=== PATIENT | male | born 1995 | race Caucasian/White ===

== ENCOUNTER 2020-09-17 15:16 | Observation (INO) | payer OTHER, SELFPAY ==
--- NOTE | ~2020-09-17 | CT_ITS ---
EXAMINATION: CT abdomen pelvis w con EXAM DATE: 09/17/2020 16:38 INDICATION: Right-sided abdominal pain. TECHNIQUE: Spiral CT of the abdomen and pelvis was performed following intravenous injection of 100 m L Omnipaque 350. Axial, coronal and sagittal images were reviewed. The dose-length product (DLP) fo r this examination was 1832.96 mGy-cm. The exposure was tailored according to patient size (auto mA exposure control), and iterative reconstruction (ASIR) was used as additional dose reduction techniqu e. There is no prior study for comparison. FINDINGS: There is hepatic steatosis without suspicious focal lesion identified. Spleen, adrenal gl ands, pancreas are unremarkable. Gallbladder is unremarkable. No biliary obstruction. Portal and s plenic veins are patent. Kidneys enhance symmetrically. There is no hydronephrosis. The prostate is unremarkable. The bladder is unremarkable. There is no retroperitoneal or pelvic lymphadenopathy . There is mild fat stranding along the body of the appendix. There is no appendicolith, and appendix d oes not appear obstructed. Diameter of up to 8 mm which is mildly dilated. The stomach and small bow el are unremarkable. There is expected amount of colonic stool. No free intraperitoneal gas. The heart is normal in size. There are no pericardial or pleural effusions. The lung bases are unremar kable. There are no osteoblastic or osteolytic lesions identified. IMPRESSION: Mild fat stranding surrounding the appendix body, probably early acute appendicitis. Reviewed, dictated and finalized at location A. IMPRESSION: Mild fat stranding surrounding the appendix body, probably early ac chilkat appendicitis.
[2020-09-17 15:18] VITALS: BP 145/76; PULSE 105; RESP 15; TEMP 36.9; O2SAT 98
[2020-09-17 15:55] LABS: Basophils Percent Auto 0.2 % (0.2-1.2); Eosinophils Absolute Auto 0.2 K/mm3 (0-0.3); Hemoglobin 15.1 g/dL (14.0-18.0); Immature Granulocyte Absolute 0.07 K/mm3 (0.00-0.031); Immature Granulocyte Percent A 0.4 % (0-0.5); Lymphocytes Absolute Auto 1.87 K/mm3 (0.9-3.2); Lymphocytes Percent Auto 11.4 % (18.3-44.2); Mean Corpuscular HGB Conc 32.8 g/dl (32-36); Mean Corpuscular Volume 82.3 fl (80-100); Mean Platelet Volume 9.5 fl (7.4-10.4); Monocytes Absolute Auto 0.9 K/mm3 (0.1-0.6); Monocytes Percent Auto 5.6 % (2.6-8.5); Neutrophils Absolute Auto 13.4 K/mm3 (1.3-6.7); Neutrophils Percent Auto 81.4 % (45.5-73.1); Platelet Count Result 292 k/mm3 (150-375); Red Blood Count 5.59 M/mm3 (4.6-6.20); White Blood Count 16.5 K/mm3 (4.5-10.0)
[2020-09-17 16:07] LABS: Alanine Aminotransferase 60 U/L (4-50); Albumin Level 4.5 g/dL (3.5-5.1); Alkaline Phosphatase 84 U/L (38-126); Anion Gap 9 mmol/L (8-16); Aspartate Amino Transferase 32 U/L (17-59); Bilirubin,Total 0.6 mg/dL (0.2-1.3); Blood Urea Nitrogen 11 mg/dL (9-20); Calcium 9.3 mg/dL (8.4-10.2); Carbon Dioxide 28 mmol/L (22-30); Chloride 101 mmol/L (98-107); Estimated CRCL calculation 193 ml/min; Estimated Glomerular Filt Rate > 60; Glucose 107 mg/dL (75-110); Lipase 22 U/L (23-300); Potassium 4.3 mmol/L (3.4-5.0); Sodium 138 mmol/L (137-145)
[2020-09-17] MEDS: SODIUM CHLORIDE 0.9% IV 1,000 ML 999 ML IV CONT (16:25)
[2020-09-17 16:29] VITALS: BP 120/71; PULSE 91; RESP 20; TEMP 36.8; O2SAT 99
--- NOTE | 2020-09-17 16:32 | ED.ABDPAIN ---
HPI - Abdominal Pain General Chief Complaint: Abdominal Pain Stated Complaint: R flank pain Time Seen by Provider: 09/17/20 15:30 Source: patient Mode of arrival: ambulatory Limitations: no limitations History of Present Illness HPI narrative: 25 years old white man morbidly obese, presents with right abdominal sharp pain started 2-hour prior to arrival associated with nausea and vomiting once. Pain worse with movement, better laying down. 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 Patient is a smoker, does not drink or uses drugs Related Data Home Medications Medication Instructions Recorded Confirmed No Home Medications 09/17/20 09/17/20 Allergies Allergy/AdvReac Type Severity Reaction Status Date / Time No Known Allergies Allergy Verified 09/17/20 15:54 Review of Systems Review of Systems: Narrative: CONSTITUTIONAL: Denies fever, chills, or sweats. EYES: Denies visual changes, redness, or discharge. ENT: Denies rhinorrhea, congestion, sore throat, or otalgia. CARDIOVASCULAR: Denies chest pain, palpitations, or edema. RESPIRATORY: Denies cough or dyspnea. GASTROINTESTINAL: Complaining of right abdominal pain GENITOURINARY: Denies dysuria or hematuria. SKIN: Denies rash or itching. MUSCULOSKELETAL: Denies back pain, joint pain, or myalgia. NEUROLOGIC: Denies headache, numbness, or weakness. PSYCHIATRIC: Denies anxiety or depression. [facility] Social History Social History Gender identity (if verbalized by the patient): Male Exam Narrative: Exam Narrative: General appearance: Well-developed, well-nourished Skin: Normal color Head: Normocephalic, nontraumatic Eyes: Clear conjunctiva ENT: Oropharynx normal, ears normal, nose normal Neck: Supple, nontender Chest and respiratory: Airway patent, no respiratory distress, no accessory muscle use Heart: Regular rate/rhythm Abdomen: Soft, moderate tenderness right abdomen, no guarding or rebound, no organomegaly, quiet bowel sounds Vascular: Normal peripheral pulses, normal capillary refill. Musculoskeletal: Normal range of motion, nontender back Neurologic: Alert and oriented ?3, FINANCE VICE PRESIDENT is normal as tested, no gross motor deficit Course Course Emergency Course: Improving Consultations Consultation #1: Dr. Thomas, surgical consult Date: 09/17/20 Time: 17:13 Vital Signs Vital signs: Vital Signs Temperature 36.9 C 09/17/20 15:18 Pulse Rate 105 H 09/17/20 15:18 Respiratory Rate 15 09/17/20 15:18 Blood Pressure 145/76 H 09/17/20 15:18 Pulse Oximetry 98 09/17/20 15:18 Temperature 36.8 C 09/17/20 16:29 Pulse Rate 91 09/17/20 16:29 Respiratory Rate 20 09/17/20 16:29 Blood Pressure 120/71 09/17/20 16:29 Pulse Oximetry 99 09/17/20 16:29 MDM - Abdominal Pain MDM Narrative Medical decision making narrative: Patient presents with right abdominal pain. Kidney stone, pyelonephritis, cholecystitis, gastritis, appendicitis are my concern. Labs, UA, IV fluid, CT abdomen and pelvis with IV contrast ordered. Blood work-up showed leukocytosis, CT abdomen pelvis showed findings consistent with possible early appendicitis. My impression patient has acute appendicitis. Started 2-hour prior to arrival, associated with nausea and vomiting and elevated white count with left shift. IV Zosyn started,, surgical consult ordered Differential Diagnosis Differential diagnosis: Likely abdominal pain, acute appendicitis, calculus of kidney, constipation, diverticul
[2020-09-17 16:45] LABS: Add Urine Microscopic? YES; Appearance Urine Clear (Clear); Bacteria Urine Trace /hpf; Bilirubin Urine Negative (Negative); Blood Urine Negative (Negative); Color Urine Yellow (Yellow); Glucose Urine UA Negative (Negative); Ketones Urine 1+ mg/dL (Negative); Leukocyte Esterase Ur Negative LEU/UL (Negative); Mucus Urine Few /lpf; Nitrate Urine Negative (Negative); Protein Urine Negative (Negative); RBC Urine 0-2 /hpf (0-2); Specific Grav Ur 1.023 (1.001-1.035); Squamous Epithelial Cell Urine Rare /hpf (Few); Urobilinogen Urine Negative mg/dL (<2.0); WBC Urine 0-3 /hpf
[2020-09-17 17:31] VITALS: BP 116/52; PULSE 94; RESP 16; TEMP 36.6; O2SAT 98
[2020-09-17 18:01] VITALS: BP 103/53; PULSE 91; RESP 18; TEMP 37.2; O2SAT 99
--- NOTE | 2020-09-17 18:06 | WPDANESEPP ---
Anes - Eval Pre Procedure Procedure: Laparoscopic appendectomy Date/Time: 09/17/20 18:06 Surgeon: Brian Thomas M.D. Preop Diagnosis: acute appendicitis Pre Op Diagnosis: R flank pain Patient Data Age: 25 Gender: M Height: 1.8 m Weight: 160 kg Last Vital Signs Temp 36.6 C 09/17/20 17:31 Pulse 94 09/17/20 17:31 Resp 16 09/17/20 17:31 BP 116/52 L 09/17/20 17:31 Pulse Ox 98 09/17/20 17:31 Allergies Allergy/AdvReac Type Severity Reaction Status Date / Time No Known Allergies Allergy Verified 09/17/20 15:54 Home Medications Medication Instructions Recorded Confirmed Type No Home Medications 09/17/20 09/17/20 History Laboratory Tests 09/17/20 09/17/20 09/17/20 15:50 15:50 16:28 WBC 16.5 K/mm3 H K/mm3 (4.5-10.0) RBC 5.59 M/mm3 M/mm3 (4.6-6.20) Hgb 15.1 g/dL g/dL (14.0-18.0) Hct 46.0 % % (42.0-52.0) MCV 82.3 fl fl (80-100) MCH 27.0 pg pg (26-34) MCHC 32.8 g/dl g/dl (32-36) RDW 13.0 % % (11.5-14.5) Plt Count 292 k/mm3 k/mm3 (150-375) MPV 9.5 fl fl (7.4-10.4) Immature Gran % (Auto) 0.4 % % (0-0.5) Neut % (Auto) 81.4 % H % (45.5-73.1) Lymph % (Auto) 11.4 % L % (18.3-44.2) Giles % (Auto) 5.6 % % (2.6-8.5) Eos % (Auto) 1.0 % % (0-4.4) Baso % (Auto) 0.2 % % (0.2-1.2) Lymph # (Auto) 1.87 K/mm3 K/mm3 (0.9-3.2) Giles # (Auto) 0.9 K/mm3 H K/mm3 (0.1-0.6) Eos # (Auto) 0.2 K/mm3 K/mm3 (0-0.3) Baso # (Auto) 0.0 K/mm3 K/mm3 (0.0-0.1) Abs Immat Gran (auto) 0.07 K/mm3 H K/mm3 (0.00-0.031) Absolute Neuts (auto) 13.4 K/mm3 H K/mm3 (1.3-6.7) Absolute Nucleated RBC 0.0 K/mm3 K/mm3 (0.0-0.012) Nucleated RBC % 0.0 % % (0.0-0.2) Sodium 138 mmol/L mmol/L (137-145) Potassium 4.3 mmol/L mmol/L (3.4-5.0) Chloride 101 mmol/L mmol/L (98-107) Carbon Dioxide 28 mmol/L mmol/L (22-30) Anion Gap 9 mmol/L mmol/L (8-16) BUN 11 mg/dL mg/dL (9-20) Creatinine 0.80 mg/dL mg/dL (0.7-1.3) Estim Creat Clear Calc 193 ml/min ml/min Estimated GFR > 60 (59 - ) Glucose 107 mg/dL mg/dL (75-110) Calcium 9.3 mg/dL mg/dL (8.4-10.2) Total Bilirubin 0.6 mg/dL mg/dL (0.2-1.3) AST 32 U/L U/L (17-59) ALT 60 U/L H U/L (4-50) Alkaline Phosphatase 84 U/L U/L (38-126) Total Protein 8.0 g/dL g/dL (6.3-8.2) Albumin 4.5 g/dL g/dL (3.5-5.1) Lipase 22 U/L L U/L (23-300) Urine Color Yellow (Yellow) Urine Appearance Clear (Clear) Urine pH 6.0 (5.0-9.0) Ur Specific Center 1.023 (1.001-1.035) Urine Protein Negative mg/dL mg/dL (Negative) Urine Glucose (UA) Negative mg/dL mg/dL (Negative) Urine Ketones 1+ mg/dL H mg/dL (Negative) Ur Blood (Man) Negative (Negative) Urine Nitrate Negative (Negative) Urine Bilirubin Negative (Negative) Urine Urobilinogen Negative mg/dL mg/dL (<2.0) Leukocyte Esterase Rfl Negative BONNIE/UL BONNIE/UL (Negative) Urine RBC 0-2 /hpf /hpf (0-2) Urine WBC 0-3 /hpf /hpf Ur Squamous Epith Cells Rare /hpf /hpf (Few) Urine Bacteria Trace /hpf /hpf Hyaline Casts 1-2 /lpf /lpf (None) Urine Mucus Few /lpf H /lpf : patient denies Patient hx anesthesia problems: none Family hx anesthesia problems: none PMFSH Past Medical History Medical History (Updated 09/17/20 @ 18:07 by Luz Marina Orantes CRNA) Morbid obesity with BMI of 45.0-49.9, adult Social History Social History Gender
[2020-09-17 19:05] VITALS: BP 116/71; PULSE 89; RESP 18; TEMP 36.9; O2SAT 99
--- NOTE | 2020-09-17 19:30 | ADMGEN ---
This patient, Fady Jane, was admitted to Medical Room 348-01. Patient/family oriented to hospital policies and general routines including ID bracelet, bed and alarms, visiting hours, pain management, procedures, bathroom and other care routines, personal items, smoking policy, room service/diet, and visiting hours. Information on how to activate the Rapid Response Team has been discussed. Patient/Family are encouraged to report perceived risks to care and to ask questions if they do not understand what they are told or what they should do.
[2020-09-17 19:48] VITALS: BP 125/66; PULSE 99; RESP 14; TEMP 36.7; O2SAT 97
[2020-09-17] MEDS: LACTATED RINGERS 1,000 ML 125 ML IV CONT (20:21)
[2020-09-18 05:51] VITALS: BP 102/57; PULSE 84; RESP 16; TEMP 36.7; O2SAT 96
[2020-09-18 05:59] LABS: Basophils Percent Auto 0.3 % (0.2-1.2); Eosinophils Absolute Auto 0.2 K/mm3 (0-0.3); Eosinophils Percent Auto 2.1 % (0-4.4); Hematocrit 43.3 % (42.0-52.0); Hemoglobin 14.1 g/dL (14.0-18.0); Immature Granulocyte Absolute 0.05 K/mm3 (0.00-0.031); Immature Granulocyte Percent A 0.5 % (0-0.5); Lymphocytes Absolute Auto 3.55 K/mm3 (0.9-3.2); Lymphocytes Percent Auto 32.2 % (18.3-44.2); Mean Corpuscular HGB Conc 32.6 g/dl (32-36); Mean Corpuscular Volume 82.8 fl (80-100); Mean Platelet Volume 9.6 fl (7.4-10.4); Monocytes Absolute Auto 0.8 K/mm3 (0.1-0.6); Monocytes Percent Auto 7.2 % (2.6-8.5); Neutrophils Absolute Auto 6.4 K/mm3 (1.3-6.7); Neutrophils Percent Auto 57.7 % (45.5-73.1); Platelet Count Result 270 k/mm3 (150-375); Red Blood Count 5.23 M/mm3 (4.6-6.20); Red Cell Distribution Width 13.1 % (11.5-14.5)
[2020-09-18] MEDS: LACTATED RINGERS 1,000 ML 125 ML IV CONT (06:30)
--- NOTE | 2020-09-18 08:53 | PM.IMHP ---
H&P: HPI History of Present Illness Date/Time: 09/18/20 08:53 This is a 25 year old white, morbidly obese male who presents with right-sided abdominal pain that started 2-hour prior to arrival at the ED last night. It was associated with nausea and vomiting once prior to arrival. The pain seems to beworse with movement, better when laying down. Patient states he ate a normal supper with some chicken and rice on Friday night but then only had a small breakfast bar for breakfast yesterday morning. Mid morning he started having the mid and right lower quadrant abdominal pain that gradually increased through the day. His last bowel movement was executive team leader Friday. 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 Patient is a smoker, does not drink or uses drugs Chief complaint: Possible Early Appencicitis Narrative: Fady Jane is a 25 year old male Review of Systems Constitutional: Constitutional: Reports as per HPI and Denies headache(s) Eyes: Eyes: Denies loss of vision and Denies eye pain ENT: Reports Normal hearing present, Denies change in voice, Denies dizziness and Denies headache(s) Cardiovascular: Cardiovascular: Denies chest pain and Denies dyspnea Respiratory: Respiratory: Denies dyspnea and Denies wheezing Comments: History of smoking usually between a half pack to a full pack a day. Gastrointestinal: Gastrointestinal: Reports as per HPI and Reports abdominal pain (Pain is 4/10 now. Where as it was 8 or 9/10 in the ER last night. ) Comments: He states he does not did not have a take any pain medicine through the night. Genitourinary: Genitourinary: Denies urinary frequency and Denies urinary incontinence Musculoskeletal: Musculoskeletal: Denies back pain and Denies arthralgias Neurologic: Reports Normal hearing present, Denies dizziness, Denies headache(s), Denies loss of vision and Denies memory loss Psychiatric: Psychiatric: Denies memory loss and Denies panic attacks Endocrine: Endocrine: Reports no additional endocrine complaints Hematologic/Lymphatic: Hematologic/Lymphatic: Reports no additional hematologic/lymphatic complaints Allergic/Immunologic: Allergic/Immunologic: Denies wheezing PMFSH Past Medical History Medical History Morbid obesity with BMI of 45.0-49.9, adult Social History Social History (Updated 09/17/20 @ 20:06 by Merary Ontiveros RN) Smoking packs per day: 1 Smoking cigarettes per day: 20.0 Smoking status: Current every day smoker Tobacco type: cigarettes Alcohol intake: former Substance use: never Substance use type: does not use Living arrangements: with family Occupation/Education: occupation Gender identity (if verbalized by the patient): Male Spiritual care concerns: No Agree to blood products: Yes Comments Family History: Denies family history of: Acute myocardial infarction Appendicitis Asthma Cerebrovascular accident Meds Home Medications and Allergies Home Medications Medication Instructions Recorded Confirmed Type No Home Medications 09/17/20 09/17/20 History Allergies Allergy/AdvReac Type Severity Reaction Status Date / Time No Known Allergies Allergy Verified 09/18/20 00:20 Vital Signs Vital Signs - 24 hr 09/17/20 15:18 09/17/20 16:29 09/17/20 17:31 Temperature 36.9 C 36.8 C 36.6 C Pulse Rate 105 H 91 94 Respiratory Rate 15 20 16 Blood Pressure 145/76 H 120/71 116/52 L Pulse Oximetry 98 99 98 09/17/20 18:01 09/17/20 19:05 09/17/20 19:48 Temperature 37.2 C 36.9 C 36.7 C Pulse Rate 91 89 99 Respiratory Rate 18 18 14 Blood Pressure 103/53 L 116/71 125/66 Pulse Oximetry 99 99 97 09/18/20 05:51 Temperature 36.7 C Pulse Rate 84 Respiratory Rate 1
[2020-09-18 14:20] VITALS: BP 122/69; PULSE 76; RESP 16; TEMP 36; O2SAT 98
[2020-09-18] MEDS: LACTATED RINGERS 1,000 ML 75 ML IV CONT (17:24)
[2020-09-18 20:00] VITALS: PULSE 83; RESP 12; O2SAT 98
[2020-09-18 20:22] VITALS: BP 119/75; PULSE 83; RESP 12; TEMP 36.8; O2SAT 98
[2020-09-19 05:47] LABS: Basophils Percent Auto 0.2 % (0.2-1.2); Eosinophils Absolute Auto 0.2 K/mm3 (0-0.3); Hematocrit 40.6 % (42.0-52.0); Hemoglobin 13.4 g/dL (14.0-18.0); Immature Granulocyte Absolute 0.04 K/mm3 (0.00-0.031); Immature Granulocyte Percent A 0.4 % (0-0.5); Lymphocytes Absolute Auto 3.19 K/mm3 (0.9-3.2); Lymphocytes Percent Auto 32.6 % (18.3-44.2); Mean Corpuscular Hemoglobin 27.2 pg (26-34); Mean Corpuscular Volume 82.4 fl (80-100); Mean Platelet Volume 9.4 fl (7.4-10.4); Monocytes Absolute Auto 0.7 K/mm3 (0.1-0.6); Monocytes Percent Auto 7.2 % (2.6-8.5); Neutrophils Absolute Auto 5.6 K/mm3 (1.3-6.7); Neutrophils Percent Auto 57.6 % (45.5-73.1); Platelet Count Result 249 k/mm3 (150-375); Red Blood Count 4.93 M/mm3 (4.6-6.20); Red Cell Distribution Width 12.9 % (11.5-14.5); White Blood Count 9.8 K/mm3 (4.5-10.0)
[2020-09-19 06:10] LABS: Anion Gap 9 mmol/L (8-16); Blood Urea Nitrogen 7 mg/dL (9-20); Calcium 8.9 mg/dL (8.4-10.2); Carbon Dioxide 27 mmol/L (22-30); Chloride 103 mmol/L (98-107); Estimated CRCL calculation 193 ml/min; Estimated Glomerular Filt Rate > 60; Glucose 97 mg/dL (75-110); Potassium 3.9 mmol/L (3.4-5.0); Sodium 139 mmol/L (137-145)
[2020-09-19 06:15] VITALS: BP 121/45; PULSE 71; RESP 12; TEMP 36.2; O2SAT 97
[2020-09-19] MEDS: LACTATED RINGERS 1,000 ML 75 ML IV CONT (09:02)
--- NOTE | 2020-09-19 11:10 | PM.DS ---
DS: Admitting Diagnosis Admitting Diagnosis Admitting Diagnosis: Possible Early Appencicitis DS: Discharge Diagnosis Discharge Diagnosis (1) Acute appendicitis without mention of peritonitis: Onset Date: ~09/17/20 Code(s): K35.80 - Unspecified acute appendicitis Status: Acute Assessment and Plan: Patient was treated with IV antibiotics. His pain resolved within 24 hours. Therefore we are continuing conservative management with 10 more days of antibiotics. This is thoroughly been discussed with a pair. He knows that he should contact the office if he begins running a fever greater than 100 consistently or increased abdominal pain especially in the right lower quadrant. Should the latter occur we would probably would do an outpatient CT scan to re-image the area of his appendix. Will keep the patient off work at least until his office visit in 2 days when we will recheck him and then he could probably go back to work while taking the antibiotics if doing well at that time. (2) Smoker: Onset Date: Unknown Code(s): F17.200 - Nicotine dependence, unspecified, uncomplicated Status: Acute Assessment and Plan: Discussed smoking cessation with the patient today. He will try to go off cigarettes completely perhaps do some tobacco chew and gradually wean off of that. He understands that this would be healthy are for him to be completely off cigarettes while he tries to recover from possible early appendicitis. (3) Morbid obesity with BMI of 45.0-49.9, adult: Onset Date: Unknown Code(s): E66.01 - Morbid (severe) obesity due to excess calories; Z68.42 - Body mass index [BMI] 45.0-49.9, adult Status: Acute Assessment and Plan: I did discuss weight loss with him. He should begin increasing exercise by walking. He should try day eat a low-fat diet and lose weight down to his ideal body weight if possible. DS: Summary Hospital Course Reason for hospitalization: Suspected early appendicitis by CT and symptoms. Hospital Course: patient had uneventful hospital course. He was admitted from the ER and received 1 dose of Zosyn upon admission. Zosyn was reinstituted the morning following his admission and continued through the hospitalization. I discussed with the patient both conservative and surgical management of appendicitis. Since he did not have a appendicoliths and has several risk factors for general anesthesia including smoking and obesity he decided to go with the conservative management and I think he is doing well. Will follow up in the office in 2 days and give him a 10 day course of oral antibiotics as an outpatient to complete his treatment. Status at Discharge Cognitive/behavioral status at discharge: Normal Functional status at discharge: independent ambulation Overall status at discharge: patient is back to baseline Time Spent with Patient Time attestation: Total time spent providing and/or coordinating discharge services:35 Time spent: Greater than 30 minutes Specific discharge activities: see discharge instructions below. Exam Const: General: cooperative, no acute distress, alert and awake Orientation/consciousness: patient oriented x3 HENMT: Mouth: Yes moist mucous membranes Neck: Neck: normal visual inspection Chest: Chest palpation & inspection: normal inspection of the chest Resp: Effort & Inspection: normal respiratory effort Auscultation: clear to auscultation bilaterally Cardio: Jugular venous distension: no JVD Rate: regular rate Rhythm: regular rhythm GI: Inspection: normal to inspection and obesity GI Palp: No abdominal tenderness and No Guarding due to palpation present (GI) Auscultation: normal bowel sounds Rectal Exam: deferred Neuro: General: patient oriented x3 and moves all extremities Speech: normal speech Extrem: General: normal exam except as noted Psych: Mental Status: mental status grossly normal Speech an
== END 2020-09-19 11:52 | disposition home or self-care (01) ==
LOC: ANHED 17:52 → ANH3MED 18:17
PROVIDERS: Admitting Provider Surgery; Emergency Provider Emergency Medicine; Visit Provider Surgery
DX: K35.80 Unspecified acute appendicitis (principal); E66.01 Morbid (severe) obesity due to excess calories; Z68.42 Body mass index [BMI] 45.0-49.9, adult; F17.210 Nicotine dependence, cigarettes, uncomplicated
CPT/HCPCS: 36415; 74177; 80048; 80053; 81001; 83690; 85025; 96361; 96365; 96366; 99285; G0378; J2543; J7030; J7120; Q9967